=== PATIENT | female | born 1980 | race Hispanic/Latino ===

== ENCOUNTER 2023-06-29 09:32 | Day surgery (SDC) | payer OTHER ==
[~2023-06-29] VITALS: Ht 162.6 cm; Wt 146.5 kg
[~2023-06-29 09:32] MED LIST: AMBIEN5 MG PO; ATORVASTATIN CA20 MG PO; CARAFATE1 GM PO; COZAAR25 MG PO; CYMBALTA60 MG PO; GABAPENTIN400 M2 PO; MOTRIN800 MG PO; OMEPRAZOLE DR40 MG PO
[2023-06-29 13:42] VITALS: BP 135/83
== END 2023-06-29 12:25 | disposition home or self-care (01) ==
LOC: ENDO 09:32 → ORM 14:00 → ENDO 14:30
PROVIDERS: ATTEND Internal Medicine Gastroenterology
DX: K22.2 Esophageal obstruction (principal); K29.70 Gastritis, unspecified, without bleeding; B96.81 Helicobacter pylori [H. pylori] as the cause of diseases classified elsewhere; K44.9 Diaphragmatic hernia without obstruction or gangrene; Z98.84 Bariatric surgery status